=== PATIENT | male | born 1945 | race Caucasian/White ===

== ENCOUNTER 2020-11-22 21:14 | Inpatient (IN) ==
[2020-11-22] MEDS ORDERED: ONDANSETRON 4 MG/2 ML VIAL ONE (21:33)
[2020-11-22] MEDS ORDERED: ONDANSETRON 4 MG/2 ML VIAL IV STA (21:35)
[2020-11-22] MEDS ORDERED: SODIUM CHLORIDE 0.9% 1,000 ML IV STA ×2 (21:39→22:35)
[2020-11-22 21:54] LABS: Basophils # 0.1 10*3/uL (0.0-0.2); Basophils % 0.3 % (0.0-0.8); Eosinophils % 0.1 % (0.00-10.9); Hematocrit 52.4 VOL% (42.0-52.0); Hemoglobin 17.6 GM/DL (14.0-18.0); Immature Granulocytes % 1.4 %; Immature Granulocytes Absolute 0.44 #; Lymphocytes # 2.8 10*3/uL (1.4-4.0); Lymphocytes % 8.8 % (21.2-54.2); Mean Corpuscular HGB Conc 33.6 GM/DL (32-36); Mean Corpuscular Volume 90.2 FL (87-102); Mean Platelet Volume 9.6 FL (9.6-12.0); Monocytes % 5.6 % (1.7-12.7); Neutrophils % 83.8 % (38.7-73.9); Platelet Count 428 T/CUMM (130-400); Red Blood Count 5.81 MC/CUMM (3.8-5.5); Red Cell Distribution Width 13.7 % (9.3-17.3); White Blood Count 31.4 T/CUMM (4-12)
[2020-11-22] MEDS ORDERED: PROMETHAZINE 25 MG/1 ML VIAL ONE (21:58)
[2020-11-22] MEDS ORDERED: PROMETHAZINE INJ 12.5 MG in SODIUM CHLORIDE 0.9% 50 ML IV STA (22:00)
[2020-11-22 22:24] LABS: Alanine Aminotransferase 74 U/L (16-61); Albumin 3.4 G/DL (3.4-5.0); Alkaline Phosphatase 176 U/L (45-117); Aspartate Amino Transferase 47 U/L (0-37); Blood Urea Nitrogen 37 MG/DL (7-18); Calcium 9.1 MG/DL (8.5-10.1); Carbon Dioxide 27 MMOL/L (21-32); Estimated Glom Filtration Rate 39 ML/MIN; Glucose 289 MG/DL (74-106); Potassium 4.7 MMOL/L (3.5-5.1); Sodium 136 MMOL/L (136-145); Total Protein 7.5 G/DL (6.4-8.2)
[2020-11-22 22:29] LABS: Atypical Lymphocytes 1+; Lymphocytes 15 % (20-55); Platelet Estimate Adequate; Segmented Neutrophils 85 % (50-85); Total Cells Counted 100
[2020-11-22] MEDS ORDERED: METOCLOPRAMIDE 10 MG/2 ML VIAL ONE (22:47)
[2020-11-22] MEDS ORDERED: METOCLOPRAMIDE 10 MG/2 ML VIAL IV STA (22:47)
[2020-11-22] MEDS ORDERED: PIPERACILLIN/TAZOBACTAM 3,375 MG in SODIUM CHLORIDE 0.9% 100 ML IV STA (23:08)
[2020-11-22] MEDS ORDERED: HYDROmorphone 2 MG/1 ML VIAL IV STA (23:09)
[2020-11-22] MEDS ORDERED: HYDROmorphone 2 MG/1 ML VIAL ONE (23:10)
[2020-11-23] MEDS ORDERED: SODIUM CHLORIDE 0.9% 1,000 ML IV STA (02:13)
[2020-11-23] MEDS ORDERED: GLUCAGON 1 MG VIAL IM PRN (02:13)
[2020-11-23] MEDS ORDERED: ALUMINUM/MAGNES/SIMETH MAX STR 30 ML UDCUP PO PRN (02:13)
[2020-11-23] MEDS ORDERED: PROMETHAZINE 25 MG/1 ML VIAL IM PRN (02:13)
[2020-11-23] MEDS ORDERED: DEXTROSE 50% 25 GM/50 ML VIAL IV PRN (02:13)
[2020-11-23 02:30] LABS: Bilirubin,Urine Negative (Negative); Blood, Urine Negative (Negative); Glucose,Urine (UA) 150 mg/dL (Negative); Hyaline Casts,Urine 7 /LPF (0-3); Ketones,Urine Negative (Negative); Mucus,Urine Occasional /LPF (Occasional); Nitrite,Urine Negative (Negative); Protein,Urine 100 MG/DL; RBC,Urine 1 /HPF (0-4); Urine Appearance CLEAR (Clear); Urine Color Yellow (Yellow); Urine Specific Gravity 1.016 (1.001-1.035); Urine Urobilinogen < 2.0 EU/DL (0.2-1.0)
[2020-11-23] MEDS ORDERED: SODIUM CHLORIDE 0.9% 1,000 ML IV SCH (02:30)
[2020-11-23] MEDS: MORPHINE 4 MG/1 ML VIAL IV PRN ×3 (03:11→20:45)
[2020-11-23 04:44] LABS: Basophils # 0.1 10*3/uL (0.0-0.2); Basophils % 0.3 % (0.0-0.8); Hematocrit 51.7 VOL% (42.0-52.0); Hemoglobin 17.4 GM/DL (14.0-18.0); Immature Granulocytes Absolute 0.33 #; Lymphocytes # 1.3 10*3/uL (1.4-4.0); Lymphocytes % 4.2 % (21.2-54.2); Mean Corpuscular HGB Conc 33.7 GM/DL (32-36); Mean Corpuscular Volume 90.4 FL (87-102); Mean Platelet Volume 9.8 FL (9.6-12.0); Monocytes % 5.9 % (1.7-12.7); Neutrophils % 88.6 % (38.7-73.9); Platelet Count 373 T/CUMM (130-400); Red Blood Count 5.72 MC/CUMM (3.8-5.5); Red Cell Distribution Width 13.9 % (9.3-17.3); White Blood Count 31.6 T/CUMM (4-12)
[2020-11-23 05:01] LABS: Alanine Aminotransferase 61 U/L (16-61); Albumin 3.1 G/DL (3.4-5.0); Alkaline Phosphatase 170 U/L (45-117); Aspartate Amino Transferase 30 U/L (0-37); Bilirubin,Total < 0.39 MG/DL (0.2-1.0); Blood Urea Nitrogen 39 MG/DL (7-18); Calcium 8.4 MG/DL (8.5-10.1); Carbon Dioxide 23 MMOL/L (21-32); Estimated Glom Filtration Rate 31 ML/MIN; Glucose 404 MG/DL (74-106); Osmolality,Calculated 298.8 MOS/KG (273-304); Sodium 137 MMOL/L (136-145)
[2020-11-23 05:03] LABS: Lymphocytes 3 % (20-55); Platelet Estimate Adequate; Potassium 6.4 MMOL/L (3.5-5.1); Segmented Neutrophils 95 % (50-85); Total Cells Counted 100
[2020-11-23 05:20] LABS: Risk Ratio 3.07; VLDL CHOLESTEROL 35.6 MG/DL
[2020-11-23] MEDS: HEPARIN 5,000 UNIT/1 ML VIAL SUBCUT SCH ×3 (05:23→21:12)
[2020-11-23] MEDS ORDERED: INSULIN REGULAR 100 UNIT/ML IV STA ×2 (05:27→06:21)
[2020-11-23] MEDS ORDERED: CALCIUM GLUCONATE 1,000 MG in SODIUM CHLORIDE 0.9% 100 ML IV ONE (05:27)
[2020-11-23] MEDS ORDERED: ALBUTEROL 2.5 MG/3 ML NEB RESP TX ONE (05:41)
[2020-11-23] MEDS ORDERED: ALBUTEROL 2.5 MG/3 ML NEB RESP TX STA (05:44)
[2020-11-23 05:46] LABS: ABG Base Excess -6.8 MMOL/L (-2.5-2.5); ABG Oxygen Saturation 96.3 % (95-100); ABG PCO2 38.7 MM HG (35-48); ABG PH 7.305 (7.35-7.45); ABG PO2 87.8 MM HG (80-95)
[2020-11-23] MEDS ORDERED: INSULIN REGULAR 100 UNIT/ML IV ONE (06:45)
[2020-11-23] MEDS ORDERED: SODIUM CHLORIDE 0.9% 1,000 ML IV ONE (06:45)
[2020-11-23 06:53] LABS: Calcium 8.4 MG/DL (8.5-10.1); Osmolality,Calculated 297.8 MOS/KG (273-304)
[2020-11-23 06:56] LABS: Potassium 6.6 MMOL/L (3.5-5.1)
[2020-11-23] MEDS ORDERED: LACTATED RINGERS 1,000 ML IV SCH (07:00)
[2020-11-23] MEDS ORDERED: INSULIN REGULAR 100 UNIT/ML SUBCUT SCH (07:30)
[2020-11-23] MEDS: INSULIN REGULAR DRIP 100 ML IV SCH ×2 (08:08→18:40)
[2020-11-23] MEDS: PIPERACILLIN/TAZOBACTAM 3,375 MG in SODIUM CHLORIDE 0.9% 100 ML IV SCH ×2 (08:20→16:20)
[2020-11-23] MEDS: PANTOPRAZOLE 40 MG VIAL IV SCH ×2 (09:57→20:45)
[2020-11-23 11:02] LABS: Calcium 7.9 MG/DL (8.5-10.1); Osmolality,Calculated 298.4 MOS/KG (273-304); Potassium 5.7 MMOL/L (3.5-5.1)
[2020-11-23] MEDS: DEXTROSE 5% LACTATED RINGERS 1,000 ML IV SCH ×2 (13:15→21:00)
[2020-11-23 14:51] LABS: Calcium 7.7 MG/DL (8.5-10.1); Osmolality,Calculated 297.1 MOS/KG (273-304); Potassium 5.6 MMOL/L (3.5-5.1)
[2020-11-23] MEDS ORDERED: LACTATED RINGERS 1,000 ML IV ONE (17:25)
[2020-11-23 18:57] LABS: Calcium 7.9 MG/DL (8.5-10.1); Osmolality,Calculated 292.4 MOS/KG (273-304); Potassium 5.6 MMOL/L (3.5-5.1)
[2020-11-23] MEDS: ONDANSETRON 4 MG/2 ML VIAL IV PRN (20:43)
[2020-11-23 23:55] LABS: Calcium 7.8 MG/DL (8.5-10.1); Osmolality,Calculated 291.5 MOS/KG (273-304); Potassium 5.4 MMOL/L (3.5-5.1)
[2020-11-24] MEDS: PIPERACILLIN/TAZOBACTAM 3,375 MG in SODIUM CHLORIDE 0.9% 100 ML IV SCH (00:37)
[2020-11-24] MEDS: ONDANSETRON 4 MG/2 ML VIAL IV PRN ×2 (01:31→12:38)
[2020-11-24] MEDS: MORPHINE 4 MG/1 ML VIAL IV PRN ×3 (01:31→12:39)
[2020-11-24 02:47] LABS: Basophils # 0.1 10*3/uL (0.0-0.2); Basophils % 0.4 % (0.0-0.8); Eosinophils # 0.1 10*3/uL (0.0-0.87); Eosinophils % 0.5 % (0.00-10.9); Hematocrit 45.6 VOL% (42.0-52.0); Hemoglobin 15.9 GM/DL (14.0-18.0); Immature Granulocytes % 0.9 %; Immature Granulocytes Absolute 0.26 #; Lymphocytes # 1.1 10*3/uL (1.4-4.0); Lymphocytes % 3.8 % (21.2-54.2); Mean Corpuscular HGB Conc 34.9 GM/DL (32-36); Mean Platelet Volume 9.8 FL (9.6-12.0); Monocytes % 6.6 % (1.7-12.7); Neutrophils % 87.8 % (38.7-73.9); Platelet Count 182 T/CUMM (130-400); Red Blood Count 5.18 MC/CUMM (3.8-5.5); Red Cell Distribution Width 14.4 % (9.3-17.3); White Blood Count 28.5 T/CUMM (4-12)
[2020-11-24 02:59] LABS: Calcium 7.4 MG/DL (8.5-10.1); Osmolality,Calculated 296.1 MOS/KG (273-304)
[2020-11-24 03:25] LABS: Lymphocytes 1 % (20-55); Platelet Estimate Normal; Segmented Neutrophils 94 % (50-85); Total Cells Counted 100
[2020-11-24 03:27] LABS: Anisocytosis Slight; Microcytosis 1+
[2020-11-24 03:29] LABS: Polychromasia Slight
[2020-11-24] MEDS: DEXTROSE 5% LACTATED RINGERS 1,000 ML IV SCH ×3 (03:36→22:16)
[2020-11-24] MEDS: INSULIN REGULAR DRIP 100 ML IV SCH ×2 (04:17→06:10)
[2020-11-24] MEDS: HEPARIN 5,000 UNIT/1 ML VIAL SUBCUT SCH ×3 (04:46→21:49)
[2020-11-24] MEDS ORDERED: CALCIUM GLUCONATE 2,000 MG in SODIUM CHLORIDE 0.9% 100 ML IV ONE (08:00)
[2020-11-24] MEDS: PANTOPRAZOLE 40 MG VIAL IV SCH ×2 (08:51→21:49)
[2020-11-24] MEDS: cefTRIAXone 2,000 MG in SODIUM CHLORIDE 0.9% 100 ML IV SCH (08:51)
[2020-11-24] MEDS: INSULIN GLARGINE 100 UNIT/ML SUBCUT SCH (12:20)
[2020-11-24] MEDS: INSULIN LISPRO 100 UNIT/ML SUBCUT SCH ×3 (14:48→17:33)
[2020-11-24] MEDS ORDERED: NIFEdipine 10 MG CAPSULE PO PRN (18:44)
[2020-11-24] MEDS: METOPROLOL TARTRATE 25 MG TABLET PO SCH ×2 (18:50→21:49)
[2020-11-25] MEDS: INSULIN LISPRO 100 UNIT/ML SUBCUT SCH ×6 (01:21→21:01)
[2020-11-25] MEDS: PREGABALIN 100 MG CAPSULE PO SCH ×2 (01:22→21:01)
[2020-11-25] MEDS: traZODone 50 MG TABLET PO SCH ×2 (01:22→21:01)
[2020-11-25] MEDS: HEPARIN 5,000 UNIT/1 ML VIAL SUBCUT SCH ×3 (03:20→21:01)
[2020-11-25 05:46] LABS: Basophils # 0.1 10*3/uL (0.0-0.2); Basophils % 0.3 % (0.0-0.8); Eosinophils % 0.2 % (0.00-10.9); Hematocrit 39.5 VOL% (42.0-52.0); Hemoglobin 13.7 GM/DL (14.0-18.0); Immature Granulocytes % 1.1 %; Immature Granulocytes Absolute 0.21 #; Lymphocytes # 0.8 10*3/uL (1.4-4.0); Mean Corpuscular HGB Conc 34.7 GM/DL (32-36); Mean Platelet Volume 10.8 FL (9.6-12.0); Monocytes % 5.7 % (1.7-12.7); Neutrophils % 88.7 % (38.7-73.9); Platelet Count 143 T/CUMM (130-400); Red Blood Count 4.39 MC/CUMM (3.8-5.5); Red Cell Distribution Width 14.6 % (9.3-17.3)
[2020-11-25 06:11] LABS: Bilirubin,Total 0.9 MG/DL (0.2-1.0); Calcium 7.7 MG/DL (8.5-10.1); Osmolality,Calculated 296.7 MOS/KG (273-304); Potassium 4.8 MMOL/L (3.5-5.1); Total Protein 5.6 G/DL (6.4-8.2)
[2020-11-25 06:18] LABS: Band Neutrophils 5 % (0-10); Lymphocytes 1 % (20-55); Segmented Neutrophils 87 % (50-85); Total Cells Counted 100
[2020-11-25 06:19] LABS: Microcytosis 1+; Platelet Estimate Adequate
[2020-11-25] MEDS: METOPROLOL TARTRATE 25 MG TABLET PO SCH ×2 (08:42→21:01)
[2020-11-25] MEDS: SERTRALINE 100 MG TABLET PO SCH (08:42)
[2020-11-25] MEDS: INSULIN GLARGINE 100 UNIT/ML SUBCUT SCH (08:43)
[2020-11-25] MEDS: PANTOPRAZOLE 40 MG VIAL IV SCH ×2 (08:43→21:02)
[2020-11-25] MEDS: cefTRIAXone 2,000 MG in SODIUM CHLORIDE 0.9% 100 ML IV SCH (08:43)
[2020-11-25] MEDS: ONDANSETRON 4 MG/2 ML VIAL IV PRN (09:32)
[2020-11-25] MEDS: LACTATED RINGERS 1,000 ML IV SCH ×2 (10:12→17:45)
[2020-11-25] MEDS: ALBUTEROL/IPRATROPIUM 3 ML NEB RESP TX SCH ×4 (11:53→21:22)
[2020-11-25] MEDS: MORPHINE 4 MG/1 ML VIAL IV PRN ×2 (15:55→23:32)
[2020-11-25] MEDS: THIAMINE 100 MG TABLET PO SCH (16:27)
[2020-11-25] MEDS: MULTIVITAMIN (BEROCCA) TABLET PO SCH (16:27)
[2020-11-25] MEDS: amLODIPine 10 MG TABLET PO SCH (17:48)
[2020-11-25] MEDS: FOLIC ACID 1 MG TABLET PO SCH (21:01)
[2020-11-26] MEDS: ALBUTEROL/IPRATROPIUM 3 ML NEB RESP TX SCH ×7 (00:10→23:48)
[2020-11-26] MEDS: INSULIN LISPRO 100 UNIT/ML SUBCUT SCH ×6 (00:51→21:44)
[2020-11-26] MEDS: LACTATED RINGERS 1,000 ML IV SCH ×4 (01:11→17:57)
[2020-11-26] MEDS: ACETAMINOPHEN 325 MG TABLET PO PRN ×2 (01:15→08:52)
[2020-11-26] MEDS: HEPARIN 5,000 UNIT/1 ML VIAL SUBCUT SCH ×2 (04:18→11:55)
[2020-11-26] MEDS: MORPHINE 4 MG/1 ML VIAL IV PRN ×4 (05:35→23:37)
[2020-11-26 06:53] LABS: Calcium 7.6 MG/DL (8.5-10.1); Osmolality,Calculated 298.4 MOS/KG (273-304)
[2020-11-26 06:57] LABS: Albumin 1.8 G/DL (3.4-5.0); Bilirubin,Total 1.8 MG/DL (0.2-1.0); Calcium 7.5 MG/DL (8.5-10.1); Osmolality,Calculated 296.5 MOS/KG (273-304); Total Protein 5.3 G/DL (6.4-8.2)
[2020-11-26 07:03] LABS: Basophils # 0.1 10*3/uL (0.0-0.2); Basophils % 0.3 % (0.0-0.8); Eosinophils % 0.1 % (0.00-10.9); Hematocrit 32.4 VOL% (42.0-52.0); Immature Granulocytes % 0.4 %; Immature Granulocytes Absolute 0.06 #; Lymphocytes # 0.9 10*3/uL (1.4-4.0); Lymphocytes % 5.3 % (21.2-54.2); Mean Corpuscular HGB Conc 34.6 GM/DL (32-36); Mean Corpuscular Volume 88.5 FL (87-102); Mean Platelet Volume 11.5 FL (9.6-12.0); Monocytes % 7.1 % (1.7-12.7); Neutrophils % 86.8 % (38.7-73.9); Platelet Count 121 T/CUMM (130-400); Red Blood Count 3.66 MC/CUMM (3.8-5.5); Red Cell Distribution Width 14.4 % (9.3-17.3); White Blood Count 16.4 T/CUMM (4-12)
[2020-11-26 07:06] LABS: Hemoglobin 11.2 GM/DL (14.0-18.0)
[2020-11-26 07:10] LABS: Lymphocytes 7 % (20-55); Segmented Neutrophils 91 % (50-85); Total Cells Counted 100
[2020-11-26 07:11] LABS: Hypochromasia 1+; Microcytosis 1+; Platelet Estimate Normal
[2020-11-26] MEDS: MULTIVITAMIN (BEROCCA) TABLET PO SCH (08:47)
[2020-11-26] MEDS: METOPROLOL TARTRATE 25 MG TABLET PO SCH ×2 (08:48→21:45)
[2020-11-26] MEDS: amLODIPine 10 MG TABLET PO SCH (08:49)
[2020-11-26] MEDS: SERTRALINE 100 MG TABLET PO SCH (08:49)
[2020-11-26] MEDS: PANTOPRAZOLE 40 MG VIAL IV SCH (08:50)
[2020-11-26] MEDS: cefTRIAXone 2,000 MG in SODIUM CHLORIDE 0.9% 100 ML IV SCH (08:50)
[2020-11-26] MEDS: THIAMINE 100 MG TABLET PO SCH (08:50)
[2020-11-26] MEDS: INSULIN GLARGINE 100 UNIT/ML SUBCUT SCH (08:51)
[2020-11-26] MEDS: PREGABALIN 100 MG CAPSULE PO SCH (21:45)
[2020-11-26] MEDS: traZODone 50 MG TABLET PO SCH (21:45)
[2020-11-26] MEDS: FOLIC ACID 1 MG TABLET PO SCH (21:45)
[2020-11-26 22:21] LABS: Bilirubin,Urine Negative (Negative); Blood, Urine Moderate mg/dL (Negative); Glucose,Urine (UA) 150 mg/dL (Negative); Ketones,Urine Negative (Negative); Mucus,Urine Occasional /LPF (Occasional); Nitrite,Urine Negative (Negative); Protein,Urine 30 MG/DL; RBC,Urine 19 /HPF (0-4); Urine Appearance Slightly Hazy (Clear); Urine Color Yellow (Yellow); Urine Specific Gravity 1.014 (1.001-1.035); Urine Urobilinogen < 2.0 EU/DL (0.2-1.0)
[2020-11-27] MEDS: ALBUTEROL/IPRATROPIUM 3 ML NEB RESP TX SCH ×5 (03:29→19:38)
[2020-11-27 05:06] LABS: Basophils # 0.1 10*3/uL (0.0-0.2); Basophils % 0.3 % (0.0-0.8); Eosinophils % 0.1 % (0.00-10.9); Hematocrit 33.1 VOL% (42.0-52.0); Hemoglobin 11.3 GM/DL (14.0-18.0); Immature Granulocytes % 0.5 %; Immature Granulocytes Absolute 0.09 #; Lymphocytes # 0.8 10*3/uL (1.4-4.0); Lymphocytes % 4.6 % (21.2-54.2); Mean Corpuscular HGB Conc 34.1 GM/DL (32-36); Mean Corpuscular Volume 89.9 FL (87-102); Mean Platelet Volume 11.2 FL (9.6-12.0); Monocytes % 9.9 % (1.7-12.7); Neutrophils % 84.6 % (38.7-73.9); Platelet Count 134 T/CUMM (130-400); Red Blood Count 3.68 MC/CUMM (3.8-5.5); Red Cell Distribution Width 14.2 % (9.3-17.3); White Blood Count 17.1 T/CUMM (4-12)
[2020-11-27 05:29] LABS: Albumin 1.8 G/DL (3.4-5.0); Bilirubin,Total 1.7 MG/DL (0.2-1.0); Calcium 7.7 MG/DL (8.5-10.1); Osmolality,Calculated 298.5 MOS/KG (273-304); Potassium 3.7 MMOL/L (3.5-5.1); Total Protein 5.6 G/DL (6.4-8.2)
[2020-11-27 05:30] LABS: Band Neutrophils 1 % (0-10); Hypochromasia 1+; Lymphocytes 7 % (20-55); Microcytosis 1+; Platelet Estimate Normal; Segmented Neutrophils 87 % (50-85); Total Cells Counted 100
[2020-11-27] MEDS: PANTOPRAZOLE 40 MG TABLET PO SCH ×2 (06:36→18:30)
[2020-11-27] MEDS: LACTATED RINGERS 1,000 ML IV SCH ×2 (08:50→10:15)
[2020-11-27] MEDS: cefTRIAXone 2,000 MG in SODIUM CHLORIDE 0.9% 100 ML IV SCH (09:16)
[2020-11-27] MEDS: amLODIPine 10 MG TABLET PO SCH (09:17)
[2020-11-27] MEDS: THIAMINE 100 MG TABLET PO SCH (09:18)
[2020-11-27] MEDS: METOPROLOL TARTRATE 25 MG TABLET PO SCH ×2 (09:18→21:02)
[2020-11-27] MEDS: INSULIN GLARGINE 100 UNIT/ML SUBCUT SCH (09:18)
[2020-11-27] MEDS: SERTRALINE 100 MG TABLET PO SCH (09:18)
[2020-11-27] MEDS: MULTIVITAMIN (BEROCCA) TABLET PO SCH (09:18)
[2020-11-27] MEDS: INSULIN LISPRO 100 UNIT/ML SUBCUT SCH ×4 (09:19→21:02)
[2020-11-27] MEDS: PREGABALIN 100 MG CAPSULE PO SCH (21:01)
[2020-11-27] MEDS: FLUTICASONE 50 MCG NASAL SPRAY 16 GM BOTTLE BOTH NARES SCH (21:01)
[2020-11-27] MEDS: traZODone 50 MG TABLET PO SCH (21:01)
[2020-11-27] MEDS: ACETAMINOPHEN 325 MG TABLET PO PRN (21:02)
[2020-11-27] MEDS: FOLIC ACID 1 MG TABLET PO SCH (21:02)
[2020-11-28] MEDS: ALBUTEROL/IPRATROPIUM 3 ML NEB RESP TX SCH ×7 (00:56→23:50)
[2020-11-28] MEDS: PANTOPRAZOLE 40 MG TABLET PO SCH ×2 (06:04→18:01)
[2020-11-28 07:21] LABS: Albumin 1.7 G/DL (3.4-5.0); Bilirubin,Total 0.8 MG/DL (0.2-1.0); Calcium 8.2 MG/DL (8.5-10.1); Osmolality,Calculated 296.4 MOS/KG (273-304); Potassium 3.6 MMOL/L (3.5-5.1); Total Protein 5.5 G/DL (6.4-8.2)
[2020-11-28 07:25] LABS: Basophils # 0.1 10*3/uL (0.0-0.2); Basophils % 0.3 % (0.0-0.8); Eosinophils % 0.2 % (0.00-10.9); Hematocrit 33.6 VOL% (42.0-52.0); Hemoglobin 11.6 GM/DL (14.0-18.0); Immature Granulocytes % 1.4 %; Immature Granulocytes Absolute 0.22 #; Lymphocytes # 0.9 10*3/uL (1.4-4.0); Lymphocytes % 5.5 % (21.2-54.2); Mean Corpuscular HGB Conc 34.5 GM/DL (32-36); Mean Corpuscular Volume 87.5 FL (87-102); Mean Platelet Volume 12.1 FL (9.6-12.0); Monocytes % 11.6 % (1.7-12.7); NRBC # 0.02 10*3/uL; Platelet Count 157 T/CUMM (130-400); Red Blood Count 3.84 MC/CUMM (3.8-5.5); Red Cell Distribution Width 14.2 % (9.3-17.3); White Blood Count 16.3 T/CUMM (4-12)
[2020-11-28] MEDS: INSULIN GLARGINE 100 UNIT/ML SUBCUT SCH (08:56)
[2020-11-28] MEDS: INSULIN LISPRO 100 UNIT/ML SUBCUT SCH ×4 (08:56→22:11)
[2020-11-28] MEDS: amLODIPine 10 MG TABLET PO SCH (08:57)
[2020-11-28] MEDS: cefTRIAXone 2,000 MG in SODIUM CHLORIDE 0.9% 100 ML IV SCH (08:57)
[2020-11-28] MEDS: THIAMINE 100 MG TABLET PO SCH (08:57)
[2020-11-28] MEDS: MULTIVITAMIN (BEROCCA) TABLET PO SCH (08:57)
[2020-11-28] MEDS: SERTRALINE 100 MG TABLET PO SCH (08:57)
[2020-11-28] MEDS: METOPROLOL TARTRATE 25 MG TABLET PO SCH ×2 (08:57→20:45)
[2020-11-28] MEDS: FLUTICASONE 50 MCG NASAL SPRAY 16 GM BOTTLE BOTH NARES SCH ×2 (09:00→20:46)
[2020-11-28 09:14] LABS: Band Neutrophils 3 % (0-10); Lymphocytes 4 % (20-55); Platelet Estimate Adequate; Polychromasia Slight; Segmented Neutrophils 89 % (50-85); Total Cells Counted 100
[2020-11-28] MEDS: PROMETHAZINE INJ 25 MG in SODIUM CHLORIDE 0.9% 50 ML IV SCH ×4 (12:57→23:27)
[2020-11-28] MEDS ORDERED: MEROPENEM 1,000 MG in SODIUM CHLORIDE 0.9% 100 ML IV SCH (13:30)
[2020-11-28 14:20] LABS: Albumin 1.8 G/DL (3.4-5.0); Bilirubin,Total 0.4 MG/DL (0.2-1.0); Calcium 8.3 MG/DL (8.5-10.1); Osmolality,Calculated 298.3 MOS/KG (273-304); Potassium 3.1 MMOL/L (3.5-5.1); Total Protein 5.6 G/DL (6.4-8.2)
[2020-11-28] MEDS: MEROPENEM 500 MG in SODIUM CHLORIDE 0.9% 100 ML IV SCH ×2 (14:23→21:58)
[2020-11-28] MEDS ORDERED: VANCOMYCIN INJ 1,000 MG in SODIUM CHLORIDE 0.9% 250 ML IV SCH (15:00)
[2020-11-28] MEDS: POTASSIUM CHLORIDE RIDER 10 MEQ in PREMIX 1 EACH IV PRN ×3 (17:36→20:47)
[2020-11-28] MEDS: traZODone 50 MG TABLET PO SCH (20:45)
[2020-11-28] MEDS: PREGABALIN 100 MG CAPSULE PO SCH (20:45)
[2020-11-28] MEDS: FOLIC ACID 1 MG TABLET PO SCH (20:45)
[2020-11-28] MEDS ORDERED: CHOLESTYRAMINE/ASPARTAME 4 GM PACK PO SCH (22:00)
[2020-11-29] MEDS: POTASSIUM CHLORIDE RIDER 10 MEQ in PREMIX 1 EACH IV PRN (00:48)
[2020-11-29] MEDS: ALBUTEROL/IPRATROPIUM 3 ML NEB RESP TX SCH ×5 (03:03→23:30)
[2020-11-29] MEDS: MEROPENEM 500 MG in SODIUM CHLORIDE 0.9% 100 ML IV SCH ×3 (06:01→21:19)
[2020-11-29] MEDS: PANTOPRAZOLE 40 MG TABLET PO SCH ×2 (06:02→19:08)
[2020-11-29 06:35] LABS: Basophils # 0.1 10*3/uL (0.0-0.2); Basophils % 0.4 % (0.0-0.8); Eosinophils # 0.1 10*3/uL (0.0-0.87); Eosinophils % 0.2 % (0.00-10.9); Hematocrit 34.8 VOL% (42.0-52.0); Hemoglobin 11.9 GM/DL (14.0-18.0); Immature Granulocytes % 1.5 %; Immature Granulocytes Absolute 0.38 #; Lymphocytes # 1.3 10*3/uL (1.4-4.0); Lymphocytes % 5.1 % (21.2-54.2); Mean Corpuscular HGB Conc 34.2 GM/DL (32-36); Mean Corpuscular Volume 88.8 FL (87-102); Mean Platelet Volume 11.2 FL (9.6-12.0); Monocytes % 8.7 % (1.7-12.7); NRBC # 0.02 10*3/uL; Neutrophils % 84.1 % (38.7-73.9); Platelet Count 212 T/CUMM (130-400); Red Blood Count 3.92 MC/CUMM (3.8-5.5); Red Cell Distribution Width 14.3 % (9.3-17.3); White Blood Count 25.5 T/CUMM (4-12)
[2020-11-29 07:09] LABS: Band Neutrophils 2 % (0-10); Lymphocytes 3 % (20-55); Platelet Estimate Normal; Segmented Neutrophils 88 % (50-85); Total Cells Counted 100
[2020-11-29 07:12] LABS: Albumin 1.7 G/DL (3.4-5.0); Bilirubin,Total 1.2 MG/DL (0.2-1.0); Calcium 8.3 MG/DL (8.5-10.1); Potassium 3.6 MMOL/L (3.5-5.1); Total Protein 5.4 G/DL (6.4-8.2)
[2020-11-29] MEDS: INSULIN LISPRO 100 UNIT/ML SUBCUT SCH ×4 (08:29→21:20)
[2020-11-29] MEDS: INSULIN GLARGINE 100 UNIT/ML SUBCUT SCH (08:31)
[2020-11-29] MEDS: METOPROLOL TARTRATE 25 MG TABLET PO SCH ×2 (08:35→21:20)
[2020-11-29] MEDS: amLODIPine 10 MG TABLET PO SCH (08:35)
[2020-11-29] MEDS: THIAMINE 100 MG TABLET PO SCH (08:38)
[2020-11-29] MEDS: MULTIVITAMIN (BEROCCA) TABLET PO SCH (08:38)
[2020-11-29] MEDS: SERTRALINE 100 MG TABLET PO SCH (08:41)
[2020-11-29] MEDS: FLUTICASONE 50 MCG NASAL SPRAY 16 GM BOTTLE BOTH NARES SCH ×2 (08:43→21:20)
[2020-11-29] MEDS ORDERED: LOPERAMIDE 2 MG CAPSULE PO PRN (12:53)
[2020-11-29] MEDS: VANCOMYCIN INJ 1,500 MG in SODIUM CHLORIDE 0.9% 500 ML IV SCH (16:10)
[2020-11-29] MEDS: PREGABALIN 100 MG CAPSULE PO SCH (21:19)
[2020-11-29] MEDS: COLESTIPOL 1 GM TABLET PO SCH (21:19)
[2020-11-29] MEDS: FOLIC ACID 1 MG TABLET PO SCH (21:20)
[2020-11-29] MEDS: traZODone 50 MG TABLET PO SCH (21:20)
[2020-11-30] MEDS: ALBUTEROL/IPRATROPIUM 3 ML NEB RESP TX SCH ×6 (03:33→23:38)
[2020-11-30] MEDS: MEROPENEM 500 MG in SODIUM CHLORIDE 0.9% 100 ML IV SCH ×2 (05:58→16:49)
[2020-11-30] MEDS: PANTOPRAZOLE 40 MG TABLET PO SCH ×2 (06:08→18:58)
[2020-11-30] MEDS: INSULIN LISPRO 100 UNIT/ML SUBCUT SCH ×4 (07:33→22:22)
[2020-11-30] MEDS: INSULIN GLARGINE 100 UNIT/ML SUBCUT SCH (09:05)
[2020-11-30] MEDS: MULTIVITAMIN (BEROCCA) TABLET PO SCH (09:06)
[2020-11-30] MEDS: SERTRALINE 100 MG TABLET PO SCH (09:07)
[2020-11-30] MEDS: METOPROLOL TARTRATE 25 MG TABLET PO SCH ×2 (09:07→21:24)
[2020-11-30] MEDS: amLODIPine 10 MG TABLET PO SCH (09:08)
[2020-11-30] MEDS: THIAMINE 100 MG TABLET PO SCH (09:09)
[2020-11-30] MEDS: COLESTIPOL 1 GM TABLET PO SCH ×3 (09:10→21:24)
[2020-11-30] MEDS: ONDANSETRON 4 MG/2 ML VIAL IV PRN ×2 (09:23→17:42)
[2020-11-30] MEDS: FLUTICASONE 50 MCG NASAL SPRAY 16 GM BOTTLE BOTH NARES SCH ×2 (09:30→21:24)
[2020-11-30] MEDS: VANCOMYCIN INJ 1,500 MG in SODIUM CHLORIDE 0.9% 500 ML IV SCH (17:44)
[2020-11-30 18:07] LABS: Bilirubin,Urine Negative (Negative); Blood, Urine Moderate mg/dL (Negative); Glucose,Urine (UA) 50 mg/dL (Negative); Ketones,Urine Negative (Negative); Mucus,Urine Occasional /LPF (Occasional); Nitrite,Urine Negative (Negative); Protein,Urine 30 MG/DL; RBC,Urine 41 /HPF (0-4); Urine Appearance CLOUDY (Clear); Urine Color Yellow (Yellow); Urine Specific Gravity 1.014 (1.001-1.035); Urine Urobilinogen < 2.0 EU/DL (0.2-1.0)
[2020-11-30] MEDS: PREGABALIN 100 MG CAPSULE PO SCH (21:24)
[2020-11-30] MEDS: FOLIC ACID 1 MG TABLET PO SCH (21:24)
[2020-11-30] MEDS: traZODone 50 MG TABLET PO SCH (21:24)
[2020-12-01] MEDS: MEROPENEM 500 MG in SODIUM CHLORIDE 0.9% 100 ML IV SCH ×3 (00:32→20:35)
[2020-12-01] MEDS: ALBUTEROL/IPRATROPIUM 3 ML NEB RESP TX SCH ×5 (03:06→19:13)
[2020-12-01 05:11] LABS: Basophils # 0.2 10*3/uL (0.0-0.2); Basophils % 0.5 % (0.0-0.8); Eosinophils # 0.2 10*3/uL (0.0-0.87); Eosinophils % 0.4 % (0.00-10.9); Hemoglobin 11.7 GM/DL (14.0-18.0); Immature Granulocytes % 3.1 %; Immature Granulocytes Absolute 1.11 #; Lymphocytes # 1.4 10*3/uL (1.4-4.0); Mean Corpuscular HGB Conc 34.4 GM/DL (32-36); Mean Platelet Volume 10.8 FL (9.6-12.0); Monocytes % 6.3 % (1.7-12.7); NRBC # 0.02 10*3/uL; Neutrophils % 85.7 % (38.7-73.9); Platelet Count 270 T/CUMM (130-400); Red Blood Count 3.82 MC/CUMM (3.8-5.5); Red Cell Distribution Width 15.2 % (9.3-17.3)
[2020-12-01 05:33] LABS: Lymphocytes 3 % (20-55); Platelet Estimate Adequate; Segmented Neutrophils 93 % (50-85); Total Cells Counted 100
[2020-12-01 05:34] LABS: Hypochromasia Slight; Microcytosis Slight
[2020-12-01 05:44] LABS: Albumin 1.6 G/DL (3.4-5.0); Bilirubin,Direct 0.53 MG/DL (0.0-0.20); Bilirubin,Indirect 0.7 MG/DL (0.0-1.0); Bilirubin,Total 1.2 MG/DL (0.2-1.0); Calcium 8.2 MG/DL (8.5-10.1); Osmolality,Calculated 307.7 MOS/KG (273-304); Potassium 3.6 MMOL/L (3.5-5.1); Total Protein 5.3 G/DL (6.4-8.2)
[2020-12-01] MEDS: PANTOPRAZOLE 40 MG TABLET PO SCH ×2 (07:44→18:40)
[2020-12-01] MEDS: SERTRALINE 100 MG TABLET PO SCH (09:38)
[2020-12-01] MEDS: MULTIVITAMIN (BEROCCA) TABLET PO SCH (09:46)
[2020-12-01] MEDS: COLESTIPOL 1 GM TABLET PO SCH ×2 (09:48→20:36)
[2020-12-01] MEDS: THIAMINE 100 MG TABLET PO SCH (09:50)
[2020-12-01] MEDS: METOPROLOL TARTRATE 25 MG TABLET PO SCH ×2 (09:50→20:35)
[2020-12-01] MEDS: amLODIPine 10 MG TABLET PO SCH (09:51)
[2020-12-01] MEDS: INSULIN LISPRO 100 UNIT/ML SUBCUT SCH ×4 (09:55→20:35)
[2020-12-01] MEDS: INSULIN GLARGINE 100 UNIT/ML SUBCUT SCH (12:40)
[2020-12-01] MEDS: FLUTICASONE 50 MCG NASAL SPRAY 16 GM BOTTLE BOTH NARES SCH ×2 (12:40→20:35)
[2020-12-01] MEDS: ACETAMINOPHEN 325 MG TABLET PO PRN (13:25)
[2020-12-01] MEDS ORDERED: BUPIVACAINE MPF 0.25% 30 ML VIAL ONE (13:38)
[2020-12-01] MEDS ORDERED: LIDOCAINE 1% 20 ML VIAL ONE (13:38)
[2020-12-01] MEDS: VANCOMYCIN INJ 1,500 MG in SODIUM CHLORIDE 0.9% 500 ML IV SCH (15:52)
[2020-12-01 16:11] LABS: Allen Test Positive
[2020-12-01 16:12] LABS: ABG HCO3 22.4 MMOL/L (20-26); ABG PCO2 39.4 MM HG (35-48); ABG PH 7.373 (7.35-7.45); ABG PO2 60.9 MM HG (80-95); ABG TCO2 23.6 MMOL/L (23-27)
[2020-12-01 16:13] LABS: ABG Base Excess -2.5 MMOL/L (-2.5-2.5); ABG Oxygen Saturation 89.9 % (95-100)
[2020-12-01] MEDS: PREGABALIN 100 MG CAPSULE PO SCH (20:35)
[2020-12-01] MEDS: FOLIC ACID 1 MG TABLET PO SCH (20:35)
[2020-12-01] MEDS: traZODone 50 MG TABLET PO SCH (20:35)
[2020-12-01 20:54] VITALS: BP 148/62
== END 2020-12-01 21:45 | disposition hospice, home (50) | DRG 439 ==
LOC: EDUNIT# → EDBD → N.ED 21:14 → N.EDINP 11-23 02:13 → SUATTDRO 11-23 02:13 → N.ICU 11-23 16:14 → N.3E 11-25 00:15
PROVIDERS: ADMIT Internal Medicine; ATTEND Internal Medicine